=== PATIENT | male | born 1980 | race Caucasian/White ===

== ENCOUNTER 2017-06-04 03:51 | Emergency (ER) | payer SELFPAY ==
[2017-06-04 04:19] VITALS: TEMP 97.5
--- NOTE | 2017-06-04 04:30 | C.PDOC ---
History Of Present Illness Patient gave a history of left uppewr chest shoulder area pain for 2 days. Pain increased by movement and palpation. Also having posterior interscapular pain.Denies any coughing or pain on breathing. Chief Complaint (Nursing): Chest Pain History Per: Patient History/Exam Limitations: no limitations Onset/Duration Of Symptoms: Days Current Symptoms Are (Timing): Still Present Severity: Mild Pain Scale Rating Of: 4 Quality: Aching, "Pain" Exacerbating Factors: Turning, Movement Alleviating Factors: None Recent travel outside of the [place]: No Additional History Per: Patient Past Medical History Vital Signs: Last Vital Signs Temp 97.5 F L 06/04/17 04:14 Pulse 80 06/04/17 04:14 Resp 14 06/04/17 04:14 BP 131/91 H 06/04/17 04:14 Pulse Ox 97 06/04/17 05:28 - Medical History PMH: Depression Surgical History: No Surg Hx Family History: States: Unknown Family Hx - Social History Hx Alcohol Use: No Hx Substance Use: No - Immunization History Hx Tetanus Toxoid Vaccination: No Hx Influenza Vaccination: No Hx Pneumococcal Vaccination: No Review Of Systems Constitutional: Negative for: Fever, Chills, Sweats Cardiovascular: Positive for: Chest Pain. Negative for: Palpitations, Orthopnea , Paroxysmal Noc. Dyspnea, Edema, Light Headedness Respiratory: Negative for: Cough, Shortness of Breath, Hemoptysis, Pleuritic Pain, Wheezing Gastrointestinal: Negative for: Nausea, Vomiting, Abdominal Pain, Diarrhea Genitourinary: Negative for: Dysuria, Frequency, Incontinence Musculoskeletal: Positive for: Shoulder Pain, Back Pain. Negative for: Neck Pain, Arm Pain, Hand Pain, Leg Pain Skin: Negative for: Rash, Lesions Neurological: Negative for: Weakness, Numbness, Incoordination, Change in Speech , Confusion, Seizures, Altered Mental Status Psych: Negative for: Anxiety, Depression Physical Exam - Physical Exam Appears: Non-toxic, No Acute Distress Skin: Normal Color Head: Atraumatic Nose: Normal Throat: Normal Neck: Normal Chest: Symmetrical, No Deformity, Tenderness (left upper chest by shoulder and posteriorly interscapular) Cardiovascular: Rhythm Regular, No Edema, No Friction Rub, No Murmur, No JVD Respiratory: Normal Breath Sounds Gastrointestinal/Abdominal: Normal Exam Back: Normal Inspection Extremity: Normal ROM ED Course And Treatment - Laboratory Results Result Diagrams: 06/04/17 04:49 06/04/17 04:49 ECG: Interpreted By Me, Viewed By Me ECG Rhythm: Sinus Rhythm ECG Interpretation: Normal, No Acute Changes Interpretation Of ECG: NSR, possible LVH by voltage criteria, borderline tracings Rate From EC O2 Sat by Pulse Oximetry: 97 Pulse Ox Interpretation: Normal Disposition Counseled Patient/Family Regarding: Diagnosis - Disposition Referrals: [facility] [Outside] Disposition: HOME/ ROUTINE Disposition Time: 05:26 Condition: STABLE Prescriptions: Cyclobenzaprine [Flexeril] 5 mg PO TID #14 tab Naproxen 375 mg PO TIDPC #20 tablet Forms: [employer] (Syriac) - Clinical Impression Clinical Impression: Chest wall pain, Myofascial pain
[2017-06-04 04:57] LABS: MEAN CORPUSCULAR HEMOGLOBIN 30.3 pg (27.0-31.0); MEAN PLATELET VOLUME 7.9 fL (7.2-11.7); RED CELL DISTRIBUTION WIDTH 14.4 % (11.5-14.5)
[2017-06-04 05:02] LABS: BASO % 0.3 % (0.0-2.0); EOS # 0.4 K/uL (0.0-0.7); EOS % 3.8 % (0.0-4.0); HEMOGLOBIN 15.6 g/dL (12.0-18.0); LYMPH % 35.2 % (20.0-40.0); MEAN CELL VOLUME 88.4 fL (80.0-94.0); MEAN CORPUSCULAR HGB CONC 34.2 g/dL (33.0-37.0); MONO % 8.9 % (0.0-10.0); NEUT # 5.9 K/uL (1.8-7.0); NEUT % 51.8 % (50.0-75.0); NRBC % 0.1 % (0.0-2.0); RBC 5.14 Mil/uL (4.40-5.90); WHITE BLOOD COUNT 11.3 K/uL (4.8-10.8)
[2017-06-04 05:05] LABS: ALB/GLOB RATIO 1.2 (1.0-2.1); ALBUMIN 4.5 g/dL (3.5-5.0); ALT/SGPT 46 U/L (21-72); AST/SGOT 25 U/L (17-59); BLOOD UREA NITROGEN 14 mg/dL (9-20); CALCIUM 9.4 mg/dl (8.6-10.4); GFR AFRICAN-AMERICAN > 60; GFR NON-AFRICAN AMERICAN > 60
[2017-06-04 05:43] VITALS: BP 111/72; PULSE 64; RESP 20; O2SAT 100
--- NOTE | 2017-06-04 07:06 | RAD ---
Chest x-ray two views History: Chest pain. Comparison: None available. Findings: Mild venous congestion. Right hilar prominence. Tortuous aorta. Top normal heart size. Degenerative changes in the spine and shoulders. Impression: Mild venous congestion. Right hilar prominence. Tortuous aorta. Top normal heart size. Degenerative changes in the spine and shoulders.
== END 2017-06-04 05:40 | disposition home or self-care (01) ==
LOC: C.ER 03:51
DX: R07.89 Other chest pain (principal); M79.1 Myalgia